=== PATIENT | female | born 1990 | race Caucasian/White ===

== ENCOUNTER 2020-04-15 09:43 | Inpatient (IN) ==
--- OUTSIDE RECORDS SUMMARY | 2020-04-15 09:46 | External Medical Summary | Continuity of Care Document ---
:1990 Author Name Corrine Wright Address Unavailable Unavailable , Care Team Providers Name Role Phone Unavailable Unavailable Unavailable PCP, UNKNOWN Unavailable Unavailable Unavailable Unavailable Unavailable Problems Active medical history not documented Allergies and Adverse Reactions Allergy history not documented Medications Medications not documented Procedures Procedures not documented Immunizations IPV On: 1989 DTaP On: 1989 IPV On: 1989 DTaP On: 1989 DTaP On: 1989 IPV On: 10-Jan-1994 DTaP On: 10-Jan-1994 MMR On: 10-Jan-1994 MMR On: 14-Feb-1994 Hepatitis B On: 27-Aug-2000 Decavac 5-2 LFU INJ On: 27-Aug-2000 Hepatitis B On: 28-Sep-2000 Hepatitis B On: 06-Feb-2001 Plan of Treatment Planned Observations Planned Goals not documented Results No Known Results Results not documented
--- NOTE | 2020-04-15 10:45 | History & Physical Report ---
Date of Service April 15, 2020 Assessment & Plan (1) Elective induction of labor planned: (2) History of delivery: 30-year-old -0-0-2 at 41 weeks of gestation, presenting for scheduled induction of labor at term for Trial of labor after / Vital signs stable afebrile, heart rate reassuring GBS negative Coronavirus negative Cervix not favorable, presenting part head is ballotable Discussed with the patient about trial of labor and its risks, uterine rupture, intra-abdominal bleeding, hypoxia even , hysterectomy and blood transfusion. Discussed risks and benefits of each options either repeat or trial of labor after . I gave her the consent with the above information from [facility], to review She wants to think about it and make a decision with her partner. (3) Previous section: (4) Post-dates : Admission and Anticipated Discharge Date Admission Date: April 15, 2020 History of Present Illness Primary Care Provider: NO PCP Patient is a 30-year-old -0-0-2 at 41 weeks of gestation with history of prior for breech presentation in 2013. She is here today for scheduled induction of labor for TOLAC/ ( trial of labor after /vaginal after ) She has no complaints. She denies contractions leakage of fluid or vaginal bleeding. She reports good movements. She denies fever chills, nausea vomiting, chest pain shortness of breath, headache change in her vision, epigastric or right upper quadrant pain. Her has been complicated by 1) history of prior in 2013 for breech presentation. 2) class II obesity She denies any other medical problems. Allergies Allergy/AdvReac Type Severity Reaction Status Date / Time No Known Allergies Allergy Verified 04/15/20 10:14 Home Medications Home Medications Medication Instructions Recorded Confirmed Type prenat.vits,george,ywu-[id number] 1 tab PO DAILY 04/15/20 04/15/20 History [ Vitamin] Patient History Medical History No acute medical problems Social History Smoking Status: Never smoker Hx Alcohol Use: No Hx Substance Use: No Preferred Language: Kenyan Communication Ability: Effective Beliefs That Will Affect Care: None marital status: Current Living Situation: Family Current Living Situation Comment: and 2 children Other Information That Helps Us Care for You: No Feels Safe at Home: Yes Safety Concerns: Feels Safe At This Time OB History in 2013 C section 2014 for breech [employer] History No h/o STD's, no HSV Review of Systems All systems reviewed & are unremarkable except as noted in HPI & below Physical Exam Constitutional: WD/WN, vitals as above well developed, well nourished and + acute distress She is comfortably lying in the bed not in acute distress. Gastrointestinal (Abdomen): normal bowel sounds, soft, nontender, no hepatosplenomegaly (Gravid, soft, nontender. Kemar 7 to 8pounds.) Musculoskeletal: no cyanosis or clubbing, extremities motor strength 5/5 Extremities: extremities normal to inspection Genitourinary: normal external appearance Manual OB Exam: + cervical dilation 2 cm, + cervical effacement 50% and + station (Ballotable) high OB Exam Monitor Tracing: + category I Results & Data ([facility]) Vital Signs (Past 12 Hours) Vital Signs Temp Pulse Resp BP 04/15/20 09:49 36.8 C 20 04/15/20 09:47 96 H 128/71
[2020-04-15] MEDS ORDERED: LACTATED RINGER'S 1,000 ML IV PRN (10:52)
[2020-04-15] MEDS ORDERED: OXYTOCIN 30 UNITS/500 ML BAG IV PRN (10:52)
[2020-04-15 11:12] LABS: Hematocrit (blood only) 32.4 % (37-47); Mean Corpuscular Volume 79.6 fL (80-100); Mean Platelet Volume 8.8 fL (7.4-10.4); Platelet Count 216 K/uL (130-400); RDW Coefficient of Variation 13.6 % (11.5-14.5); Red Blood Count 4.07 M/uL (4.2-5.4); White Blood Count 9.48 K/uL (4.8-10.8)
--- NOTE | 2020-04-15 12:12 | Obstetrical Progress Note ---
Date of Service April 15, 2020 Assessment & Plan Admission and Anticipated Discharge Date Admission Date: April 15, 2020 Subjective Patient reviewed ACOG form for TOLAC/ and decided to proceed with Repeat Csection Discussed the risks of Csection and she signed an informed consent Plan for at or after 5 pm tonight since she ate full meal at 9 am All questions were answered Results & Data ([facility]) Vital Signs (Past 12 Hours) Vital Signs Temp Pulse Resp BP 04/15/20 09:49 36.8 C 20 04/15/20 09:47 96 H 128/71
[2020-04-15] MEDS ORDERED: LACTATED RINGER'S 1,000 ML IV SCH ×2 (12:15→18:30)
[2020-04-15] MEDS ORDERED: CEFAZOLIN 3000MG 65 ML IV SCH ×2 (12:30→17:00)
[2020-04-15] MEDS ORDERED: MoRPHine SULFATE PF 1 MG/ML 10 ML AMP/VIAL ONE (16:56)
[2020-04-15] MEDS ORDERED: fentaNYL citrate 100 MCG/2 ML VIAL ONE ×3 (16:56→17:50)
[2020-04-15] MEDS ORDERED: OXYTOCIN 10 UNITS/ML VIAL ONE (16:59)
[2020-04-15] MEDS ORDERED: CITRIC ACID/SODIUM CITRATE 15 ML UDC PO SCH (17:00)
[2020-04-15] MEDS ORDERED: OXYTOCIN 10 UNITS/ML VIAL IM ONE (17:37)
--- NOTE | 2020-04-15 17:40 | Anesthesiology Consultation ---
Date of Service April 15, 2020 Assessment & Plan ASA ASA2 Proposed Anesthesia Anesthesia Type: Spinal Risk / Benefits Reviewed With: PT / POA / Parent / Guardian, Accepts Plan and Informed Consent Obtained History Surgery Operation Date: 04/15/20 17:00 Proposed Procedures p Section in LD(Bilateral) - Frida Sutton MD Height/Weight Height: 5 ft 10 in Weight: 121.563 kg Allergies Allergy/AdvReac Type Severity Reaction Status Date / Time No Known Allergies Allergy Verified 04/15/20 10:14 Medications Home Medications Medication Instructions Recorded Confirmed Last Taken prenat.vits,george,yyn-[id number] 1 tab PO DAILY 04/15/20 04/15/20 04/15/20 07:30 [ Vitamin] NPO Date Last Intake of Fluids: 04/15/20 Time Last Intake of Fluids: 09:00 Date Last Intake of Solids: 04/15/20 Time Last Intake of Solids: 10:00 Past Medical History Medical History No acute medical problems Exercise / Class Metabolic Activity II 4-5 Yardwork/Stairs/Walk up hill Past Anesthesia History No Hx of Anesthesia Complications and No Family Hx of Anesthesia Complications History of PONV No Hx of PONV and No Hx of Motion Sickness Social History Smoking Status: Never smoker Hx Alcohol Use: No Hx Substance Use: No Review of Systems denies fever/cough/ colds/ chest pain/ SOB/ ELIEZER Constitutional: no fever and no chills Respiratory: no cough and no dyspnea denies ELIEZER Cardiovascular: no chest pain and no dyspnea on exertion Physical Exam Vital Signs Last Vital Signs Temp 37.0 C 04/15/20 16:12 Pulse 85 04/15/20 16:12 Resp 20 04/15/20 16:12 BP 135/84 04/15/20 16:12 ENMT Mouth: no TMJ abnormality and no dentition abnormality Thyromental Distance: > or= 3.5 Finger Breadths Mallampati Class: II Neck neck extension not limited Respiratory normal respiratory effort; no respiratory distress Auscultation: lungs clear to auscultation bilaterally Cardiovascular Rate/Rhythm: regular rate and regular rhythm Neurologic moves all extremities Psychiatric Orientation: alert and oriented x 3 Testing Laboratory Results 04/15/20 10:58 Blood Type B Negative 04/15/20 10:58 Antibody Screen NEGATIVE 04/15/20 10:58
[2020-04-15] MEDS ORDERED: NALOXONE HCL 0.08 MG in SYRINGE 1.8 ML IV PRN (17:41)
[2020-04-15] MEDS ORDERED: PROMETHAZINE HCL 25 MG in SODIUM CHLORIDE 0.9% 50 ML IV PRN ×2 (17:41→18:21)
[2020-04-15] MEDS ORDERED: MoRPHine SULFATE 2 MG/ML CARP IV PRN (17:41)
[2020-04-15] MEDS ORDERED: NALOXONE HCL 1 MG in SODIUM CHLORIDE 0.9% 1000ML 1,000 ML IV PRN (17:41)
[2020-04-15] MEDS ORDERED: DiphenhydrAMINE HCL 50 MG/ML VIAL IV PRN ×2 (17:41→18:21)
[2020-04-15] MEDS ORDERED: NALOXONE HCL 0.4 MG/1 ML VIAL/CARP IV PRN (17:41)
[2020-04-15] MEDS ORDERED: ONDANSETRON INJ 2 MG/ML 2 ML VIAL IV PRN ×2 (17:41→18:21)
[2020-04-15] MEDS ORDERED: KETOROLAC 30 MG/ML VIAL IV PRN (17:41)
[2020-04-15] MEDS ORDERED: MoRPHine SULFATE PF 1 MG/ML 10 ML AMP/VIAL INT SPINAL ONE (17:41)
[2020-04-15] MEDS ORDERED: ePHEDrine sulfate 50 MG/ML AMP IV PRN (17:41)
[2020-04-15] MEDS ORDERED: LACTATED RINGER'S 500 ML IV PRN (17:41)
[2020-04-15] MEDS ORDERED: NO NARCOTICS OR SEDATIVES SCH (17:45)
[2020-04-15] MEDS ORDERED: DC INTRASPINAL MORPHINE SCH (17:45)
[2020-04-15] MEDS ORDERED: SODIUM CHLORIDE 0.9% 1000ML 1,000 ML IV SCH (17:45)
[2020-04-15] MEDS ORDERED: PROPOFOL IV EMULSION 10 MG/ML 20 ML VIAL IV ONE (18:04)
[2020-04-15] MEDS ORDERED: ONDANSETRON INJ 2 MG/ML 2 ML VIAL ONE (18:04)
[2020-04-15] MEDS ORDERED: ACETAMINOPHEN 1000 MG/100 ML IV IV ONE (18:10)
[2020-04-15] MEDS ORDERED: ACETAMINOPHEN 1,000 MG/100 ML VIAL IV PRN (18:21)
[2020-04-15] MEDS ORDERED: MAGNESIUM HYDROXIDE SUSP 30 ML UDC PO PRN (18:21)
[2020-04-15] MEDS ORDERED: DIPHTHERIA/TETANUS/PERTUSSIS 0.5 ML SYR/VIAL IM ONE (18:21)
[2020-04-15] MEDS ORDERED: BENZOCAINE 20% AER SPR 82.5 GM CAN EXT PRN (18:21)
[2020-04-15] MEDS ORDERED: MEPERIDINE HCL 50 MG/ML CARP IV PRN (18:21)
[2020-04-15] MEDS ORDERED: MEASLES, MUMPS & RUBELLA VIRUS VIAL SQ ONE (18:21)
[2020-04-15] MEDS ORDERED: HYDROCORTISONE ACETATE 25 MG SUPP PR PRN (18:21)
[2020-04-15] MEDS ORDERED: SUPERCREAM 0.870% 15 GM JAR EXT PRN (18:21)
[2020-04-15] MEDS ORDERED: SENNA 8.6 MG TAB PO PRN (18:21)
--- NOTE | 2020-04-15 18:21 | Post Operative Brief Note ---
Immediate Post Op Note v1 Date of Surgery April 15, 2020 Pre & Post Diagnosis Operation Date: 04/15/20 17:00 Pre-Op Diagnosis: 1. Prior 2. Declines Post-Op Diagnosis: Same I identified the patient and participated in the time-out.: Yes Procedure Operation Date: 04/15/20 17:00 Actual Procedures p in LD; Repeat Lower Uterine Transverse Section for the of a live girl infant at 1730.(Bilateral) - Frida Sutton MD Surgeon Frida Sutton MD Ticket Marker NIRMALA Rueda Estimated Blood Loss 800 Findings Consistent with Post-Op Diagnosis Drains Rhodes Catheter (Rhodes catheter inserted without difficulty. Patent and draining clear yellow urine. ) Anesthesia Type Spinal Complications none Disposition Accompanied Patient To Recovery: Yes Disposition: L&D
--- NOTE | 2020-04-15 18:42 | Anesthesiology Progress Note ---
Date of Service April 15, 2020 Anesthesia Post Procedure Vital Signs Vital Signs: Temp Pulse Resp BP Pulse Ox 04/15/20 18:40 67 126/58 L 04/15/20 18:39 76 100 04/15/20 18:34 83 100 04/15/20 18:32 79 89 L 04/15/20 18:29 71 100 04/15/20 18:24 69 121/82 100 04/15/20 16:12 37.0 C 85 20 135/84 04/15/20 14:05 36.9 C 85 20 124/73 04/15/20 09:49 36.8 C 20 04/15/20 09:47 96 H 128/71 Transfer of Care Handoff Completed per policy Notes Mental Status: alert / awake / arousable and participated in evaluation Patient Amnestic to Procedure: Yes Nausea / Vomiting: adequately controlled Pain: adequately controlled Airway Patency, RR, SpO2: stable & adequate BP & HR: stable & adequate Hydration State: stable & adequate Anesthetic Complications: no major complications apparent and Pt Satisfied with anesthetic care
[2020-04-15] MEDS: OXYTOCIN 20 UNITS in LACTATED RINGER'S 1,000 ML IV SCH (18:56)
--- NOTE | 2020-04-15 20:51 | Operative Report (OR) ---
DATE OF OPERATION: 04/15/2020 PREOPERATIVE DIAGNOSES: The patient is a 30-year-old 3, para 2-0-0-2, at 41 weeks of gestation with history of prior section, desires repeat section and declines TOLAC/ (trial of labor after section/vaginal after section). POSTOPERATIVE DIAGNOSES: The patient is a 30-year-old 3, para 2-0-0-2, at 41 weeks of gestation with history of prior section, desires repeat section and declines TOLAC/ (trial of labor after section/vaginal after section). PROCEDURE: Repeat low transverse with Pfannenstiel skin incision. SURGEON: Frida Sutton MD. CHESTNUT TANNER: Latonya Borja RN, labor and delivery nurse. ESTIMATED BLOOD LOSS: 800 mL. DRAINS: Rhodes catheter drained 300 ml clear urine. ANESTHESIA: Spinal. ANESTHESIOLOGIST: Dr. Horta. COMPLICATIONS: None. FINDINGS: Baby was viable female delivered at 1738 p.m. in cephalic presentation, Apgars were 8/9, weight was 4165 grams. Maternal findings, normal uterus, fallopian tubes and ovaries. DESCRIPTION OF PROCEDURE: The patient was taken to the operating room where spinal anesthesia was given without difficulty. She was placed in dorsal supine position with a leftward tilt. She was prepared and draped in usual sterile fashion. A Pfannenstiel skin incision was made from the old scar, carried through to the underlying layer of fascia with the Bovie. Fascia was incised in the midline and incision was extended laterally with the help of Barahona scissors. Lower aspect of the fascial incision was grasped with 2 Liliya clamps, elevated, underlying rectus muscles were dissected off sharply and bluntly with Barahona scissors and upper aspect of the fascial incision was grasped with 2 Liliya clamps, elevated, underlying rectus muscles were dissected off sharply and bluntly with the fingers. Rectus muscles were already in the midline. Peritoneum was identified, entered bluntly with fingers. Peritoneal incision was extended superiorly and inferiorly with good visualization of the bladder and Jesus abdominal retractor was placed into the abdomen to retract during surgery and then the vesicouterine peritoneum was identified, grasped with pickups, entered sharply with Metzenbaum scissors and bladder flap was created digitally and bladder blade was inserted. Lower uterine segment was incised in transverse fashion, incision was extended laterally with the help of fingers. Membranes were ruptured. Clear fluid was obtained. It was abundant in amount and baby's head was delivered without difficulty. Shoulders were delivered with minimal traction. Mouth and nose were suctioned. Cord was clamped x2 and cut at 1 minute delay. Baby was handed off to the awaiting pediatric team, and placenta was delivered manually as intact and complete. Uterus was exteriorized, cleared of all clots and debris. Uterine incision was repaired with 0 Vicryl in a running locked fashion and a second imbricating layer was placed with 0 Vicryl in a running locked fashion. There was minimal oozing on the lower segment of the uterus that was controlled with [id number] stitches x2 and the Bovie. Excellent hemostasis was achieved. The cul-de-sac was irrigated with warm normal saline and suctioned. Uterus was returned to the abdomen. The pelvis was irrigated with warm normal saline and suctioned. There was a superficial small oozing on the serosa, close to the left corner, which was also controlled with 2-0 Vicryl with [id number] stitches and excellent hemostasis was achieved. Rest of the incision was covered with Eran powder to prevent any oozing in the future. Then, ample time was used to inspect the incision to make sure it was hemostatic and it was. Then, parietal peritoneum was reapproximated with 3-0 Vicryl in a running fashion and then the rectus fascia was reapproximated with 0 Vicryl in a running fashion. Subcuticular fat tissue was brought together with 3-0 Vicryl in a running fashion. Skin was closed with 4-0 Monocryl in a running subcuticular fashion. The patient tolerated the procedure well. Sponge, lap, needle count was correct x3. No complications happened. I was present during whole procedure. At the end of the procedure, sponge, needle count was correct x3 and the patient was taken to recovery room in stable condition. She received 3 grams of cefazolin before surgery. I attest to the content of the Intraoperative Record and any orders documented therein. Any exceptions are noted below. ALANIS
[2020-04-15] MEDS: METHYLERGONOVINE MALEATE 0.2 MG TAB PO SCH (21:24)
[2020-04-15] MEDS: DOCUSATE SODIUM 100 MG CAP PO SCH (21:28)
[2020-04-15] MEDS: FERROUS SULFATE 325 MG TAB PO SCH (21:28)
[2020-04-16] MEDS: OXYTOCIN 20 UNITS in LACTATED RINGER'S 1,000 ML IV SCH (03:34)
[2020-04-16 06:45] LABS: Basophils # (auto) 0.02 K/uL (0-0.2); Basophils % (auto) 0.2 %; Eosinophils # (auto) 0.07 K/uL (0-0.5); Eosinophils % (auto) 0.6 %; Hematocrit (blood only) 32.1 % (37-47); Hemoglobin 10.4 g/dL (12.0-16.0); Immature Granulocytes # (auto) 0.04 K/uL (0.00-0.02); Immature Granulocytes % (auto) 0.4 %; Lymphocytes # (auto) 2.06 K/uL (1.2-3.4); Lymphocytes % (auto) 18.1 %; Mean Corpuscular Hemoglobin 26.4 pg (25-34); Mean Corpuscular Hgb Conc 32.4 g/dL (32-36); Mean Corpuscular Volume 81.5 fL (80-100); Mean Platelet Volume 8.8 fL (7.4-10.4); Monocytes # (auto) 1.04 K/uL (0.11-0.59); Monocytes % (auto) 9.1 %; Neutrophils # (auto) 8.16 K/uL (1.4-6.5); Neutrophils % (auto) 71.6 %; Platelet Count 187 K/uL (130-400); RDW Coefficient of Variation 13.6 % (11.5-14.5); RDW Standard Deviation 41.4 fL (36.4-46.3); Red Blood Count 3.94 M/uL (4.2-5.4); White Blood Count 11.39 K/uL (4.8-10.8)
[2020-04-16] MEDS: PRENATAL VITAMIN 1 TAB PO SCH (09:38)
[2020-04-16] MEDS: FERROUS SULFATE 325 MG TAB PO SCH (09:38)
[2020-04-16] MEDS: SIMETHICONE 80 MG CHEW PO SCH ×4 (09:38→20:44)
[2020-04-16] MEDS: DOCUSATE SODIUM 100 MG CAP PO SCH ×2 (09:38→20:44)
--- NOTE | 2020-04-16 13:20 | Surgery Progress Note ---
Date of Service April 16, 2020 Assessment & Plan Admission and Anticipated Discharge Date Admission Date: April 15, 2020 Subjective POD#1 doing well passing gas dinorah diet ambulating well Physical Exam Constitutional: WD/WN, vitals as above comfortable abdomen soft incision c/d/i no edema neg Guera's will advance diet/care Results & Data ([facility]) Vital Signs (Past 12 Hours) Vital Signs Temp Pulse Resp BP Pulse Ox 04/16/20 06:14 18 97 04/16/20 05:40 20 97 04/16/20 04:35 18 100 04/16/20 03:35 36.5 C 57 L 18 102/67 97 04/16/20 02:15 18 100 04/16/20 01:30 18 98 Laboratory Results 04/15/20 04/15/20 04/16/20 10:58 10:58 06:23 WBC 9.48 11.39 H RBC 4.07 L 3.94 L Hgb 11.0 L 10.4 L Hct 32.4 L 32.1 L MCV 79.6 L 81.5 MCH 27.0 26.4 MCHC 34.0 32.4 RDW Std Deviation 39.0 41.4 RDW Coeff of Aristeo 13.6 13.6 Plt Count 216 187 MPV 8.8 8.8 Immature Gran % (Auto) 0.4 Neut % (Auto) 71.6 Lymph % (Auto) 18.1 [place] % (Auto) 9.1 Eos % (Auto) 0.6 Baso % (Auto) 0.2 Neut # (Auto) 8.16 H Lymph # (Auto) 2.06 [place] # (Auto) 1.04 H Eos # (Auto) 0.07 Baso # (Auto) 0.02 Immature Gran # (Auto) 0.04 H Blood Type B Negative Antibody Screen NEGATIVE
[2020-04-16] MEDS ORDERED: ACETAMINOPHEN 325 MG TAB PO PRN (13:25)
[2020-04-16] MEDS: METHYLERGONOVINE MALEATE 0.2 MG TAB PO SCH ×3 (13:32→20:44)
[2020-04-16] MEDS: IBUPROFEN 600 MG TAB PO PRN ×2 (13:32→20:45)
[2020-04-16] MEDS: OXYCODONE/ACETAMINOPHEN 5mg/325mg TAB PO PRN ×2 (13:35→20:44)
[2020-04-16] MEDS ORDERED: bisacodyL 5 MG TABEC PO SCH (20:00)
[2020-04-17 06:01] LABS: Hematocrit (blood only) 30.8 % (37-47); Hemoglobin 9.8 g/dL (12.0-16.0)
[2020-04-17] MEDS: SIMETHICONE 80 MG CHEW PO SCH ×2 (09:03→12:06)
[2020-04-17] MEDS: FERROUS SULFATE 325 MG TAB PO SCH (09:03)
[2020-04-17] MEDS: PRENATAL VITAMIN 1 TAB PO SCH (09:03)
[2020-04-17] MEDS: IBUPROFEN 600 MG TAB PO PRN ×2 (09:04→12:56)
[2020-04-17] MEDS: METHYLERGONOVINE MALEATE 0.2 MG TAB PO SCH ×2 (09:04→12:55)
[2020-04-17] MEDS: DOCUSATE SODIUM 100 MG CAP PO SCH (09:04)
--- NOTE | 2020-04-17 11:18 | Obstetrical Progress Note ---
Date of Service April 17, 2020 Assessment & Plan (1) delivery delivered: POD #2 pt doing well d/c home with instructions Subjective Ambulation: ambulating normally Voiding: no voiding problems Passing Gas:: Yes Diet Tolerance:: regular diet Lochia:: Small Feeding Type:: breast feeding Review of Systems All systems reviewed & are unremarkable except as noted in HPI & below Physical Exam Constitutional WD/WN, vitals as above well developed and well nourished Eyes PERRL, conjunctivae normal, anicteric sclerae ENMT external ear and nose normal, oropharynx normal Neck trachea midline, no thyromegaly Respiratory normal respiratory effort, lungs clear to auscultation Auscultation: no crackles, no rales and no wheezes Cardiovascular RRR, no murmur, no edema Chest (Breasts) normal inspection/palpation of breasts Gastrointestinal (Abdomen) normal bowel sounds, soft, nontender, no hepatosplenomegaly Uterus is below umbilicus Musculoskeletal no cyanosis or clubbing, extremities motor strength 5/5 Skin no rashes, warm and dry + incision (Clean,dry and intact) Neurologic patellar DTR's 2+ bilat, sensation intact Psychiatric A+Ox3, euthymic affect Genitourinary normal external appearance Lymphatic no cervical or axillary lymphadenopathy Results & Data ([facility]) Vital Signs (Past 12 Hours) Vital Signs Temp Pulse Resp BP 04/17/20 07:30 36.4 C L 88 20 107/68 04/17/20 00:10 36.7 C 66 18 94/60 L
[2020-04-17] MEDS ORDERED: bisacodyL 10 MG SUPP PR PRN (18:21)
--- NOTE | 2020-04-23 02:07 | Discharge Summary (DS) ---
DETAILS OF ADMISSION: The patient is a 30-year-old G3, P2-0-0-2 at 41 weeks of gestation presenting for scheduled induction of labor at term for trial of labor after and for trial of , vaginal after . Her vital signs were stable, afebrile. Her cervix was not favorable. Discussed with the patient about the risks of vaginal after including but not limited to uterine rupture, intraabdominal bleeding, hypoxia, even , hysterectomy and blood transfusion. She states that she did not know all those risks. I gave her the consent form from [facility] [employer], she read that and she declined TOLAC/, she decided to have a repeat . She was taken to the OR on the same day and she had repeat low transverse and delivered a viable female infant at 1738 p.m. Apgars were 8/9, weight was 4165 grams. No complications happened. See dictated op note for details. On postop period, the patient was doing well. Vital signs stable, afebrile. Urine output was adequate. She was passing gas, tolerating a regular diet, ambulating. On postop day #2, the patient was feeling well. Vital signs stable, afebrile. Physical exam was unremarkable. Incision was clean, dry and intact and she wanted to be discharged on day #2. Discharge instructions were given. Prescriptions were written for pain. She is to be seen in the office in a week. All questions were answered.
== END 2020-04-17 13:59 | disposition home or self-care (01) | DRG 788 ==
LOC: 4S1 09:43 → 4S2 21:27